=== PATIENT | male | born 2000 | race African-American/Black ===

== ENCOUNTER 2023-11-16 16:59 | Emergency (ER) | payer MEDICAID ==
[~2023-11-16] VITALS: Ht 180.3 cm; Wt 82.7 kg
[2023-11-16 18:11] VITALS: BP 115/77; PULSE 119; RESP 16; TEMP 98; O2SAT 98
== END 2023-11-16 18:12 ==
LOC: ER 17:00
DX: S80.01XA Contusion of right knee, initial encounter (principal); X58.XXXA Exposure to other specified factors, initial encounter; Y93.89 Activity, other specified; Y92.89 Other specified places as the place of occurrence of the external cause; Y99.8 Other external cause status
CPT/HCPCS: 73564; 99283

== ENCOUNTER 2023-11-30 16:02 | Emergency (ER) | payer MEDICAID ==
[2023-12-01] MEDS ORDERED: NAPR-56 PO (14:55)
== END 2023-11-30 16:31 | disposition left against medical advice (07) ==
LOC: ER 16:03
DX: M79.606 Pain in leg, unspecified (principal); Z53.21 Procedure and treatment not carried out due to patient leaving prior to being seen by health care provider

== ENCOUNTER 2023-12-01 12:57 | Emergency (ER) | payer MEDICAID ==
[~2023-12-01] VITALS: Ht 180.3 cm; Wt 81.7 kg
[2023-12-01 13:30] VITALS: BP 130/65; PULSE 80; TEMP 97.6; O2SAT 98
[2023-12-01] MEDS ORDERED: NAPR-56 PO (14:55)
[2023-12-01 15:12] VITALS: RESP 18
[2023-12-01] MEDS: ketorolac tromethamine 15mg/ml inj. IM ONE (15:12)
== END 2023-12-01 15:24 | disposition home or self-care (01) ==
LOC: ER 12:58
DX: S80.01XA Contusion of right knee, initial encounter (principal); X58.XXXA Exposure to other specified factors, initial encounter; Y93.89 Activity, other specified; Y92.89 Other specified places as the place of occurrence of the external cause; Y99.8 Other external cause status
CPT/HCPCS: 96372; 99283; J1885